=== PATIENT | female | born 1940 | race Caucasian/White ===

== ENCOUNTER 2017-12-16 10:22 | Observation (INO) | payer OTHER ==
[~2017-12-16] VITALS: Ht 160 cm; Wt 91.6 kg
[~2017-12-16 10:22] MED LIST: ACTOS30 MG PO; ASPIR 8181 MG PO; GLUCOPHAGE XR500 MG PO; GLUCOTROL10 MG PO; LEVOXYL50 MCG PO; LISINOPRIL40 MG PO; MACROBID 100 M100 MG PO; NORVASC5 MG PO; ZOCOR20 MG PO
--- OUTSIDE RECORDS SUMMARY | 2017-12-16 10:25 | XMS REPORT ---
Author Author [facility] Address Unknown Phone Unavailable Care Team Providers Care Artistic Associate Name Role Phone SCOTT PONCE Unavailable Unavailable Problems This patient has no known problems. Allergies, Adverse Reactions, Alerts This patient has no known allergies or adverse reactions. Medications This patient has no known medications. Results Test Description Test Time Test Comments Text Results Atomic Results Result Comments CT ABDOMEN/PELVIS WO [place] [id number] Patient Name: SARIKA FRANKLIN MR #: [id number] : 1940 Age/Sex: 77/F Req #: [id number] Adm Physician: SCOTT PONCE MD Ordered by: SCOTT PONCE MD Report #: [id number] Location: MED/SURG Room/Bed: [facility] Procedure: [id number] CT/CT ABDOMEN/PELVIS WO Exam Date: Exam Time: 1949 REPORT STATUS: Signed EXAM: CT Chest, Abdomen and Pelvis WITHOUT contrast INDICATION: COMPARISON: None available at the time of dictation. TECHNIQUE: Chest, abdomen and pelvis were scanned utilizing a multidetector helical scanner from the lung apex to the pubic symphysis without administration of IV contrast. Absence of intravenous contrast decreases sensitivity for detection of focal lesions and vascular pathology. Coronal and sagittal reformations were obtained. Routine protocol was performed. IV CONTRAST: None ORAL CONTRAST: Gastroview COMPLICATIONS: None RADIATION DOSE: Total DLP: 1034 mGy*cm Estimated effective dose: (DLP x 0.015 x size factor) mSv CTDIvol has been reviewed. It is below the limits set by the Radiation Protocol Committee (RPC). FINDINGS: LINES and TUBES: Duffy catheter in place. LUNGS AND AIRWAYS: Right upper lobe 0.3 cm subpleural nodule (series 4 image 41). No focal consolidations. Mild dependent atelectasis. Central airways are clear. PLEURA: The pleural spaces are clear. HEART AND MEDIASTINUM: Thyroid is enlarged. Punctate calcification in the left thyroid lobe. Calcified mediastinal and hilar lymph nodes, likely related to prior granulomatous disease. No mediastinal, hilar or axillary lymphadenopathy. The heart is normal in size.. There is no pericardial effusion. Coronary artery atherosclerotic calcifications. HEPATOBILIARY: Calcified granulomas. No suspicious contour abnormalities. Mild hepatomegaly measuring approximately 17 cm in the right midclavicular line. No biliary ductal dilation. GALLBLADDER: Absent SPLEEN: Calcified granulomas. No splenomegaly. PANCREAS: No suspicious contour abnormalities. No ductal dilatation. ADRENALS: Thickened bilaterally, left greater than right, likely representing hyperplasia. KIDNEYS/URETERS: Right kidney is absent. Mild nonspecific left perinephric stranding. No hydronephrosis. No suspicious contour abnormalities. No stones. GI TRACT: No abnormal distention, wall thickening, or evidence of bowel obstruction. Diffuse colonic diverticula without evidence of diverticulitis. Appendix is normal. PELVIC ORGANS/ BLADDER: Unremarkable. LYMPH NODES: No lymphadenopathy. VESSELS: Limited evaluation without intravenous contrast. Moderate scattered atherosclerotic calcifications. No abdominal aortic aneurysm. PERITONEUM / RETROPERITONEUM: No free air or fluid. BONES: Unremarkable. SOFT TISSUES: No significant soft tissue stranding or drainable fluid collections within the visualized soft tissues. IMPRESSION: 1. Mild nonspecific left perinephric stranding which may be physiologic. Consider clinical correlation and urinalysis to exclude pyelonephritis. 2. Otherwise, no acute noncontrast CT abnormalities in the chest, abdomen, and pelvis. 3. Diffuse colonic diverticula without diverticulitis. 4. Mild hepatomegaly. 5. Enlarged thyroid. Signed by: DR. Jace De La Vega MD on 06/29/2017 8:33 PM Dictated By: JACE DE LA VEGA MD 32 Transcribed By: NASEEM on 06/29/172032 COPY TO: SCOTT PONCE MD CT CHEST WO [place] [id number] [place] [address] Patient Name: SARIKA FRANKLIN MR #: [id number] : 1940 Age/Sex: 77/F Req # : [id number] Adm Physician: SCOTT PONCE MD Ordered by: SCOTT PONCE MD Report #: [id number] Location: MED/SURG2 Room/Bed: [facility] _ Procedure: [id number] CT/CT CHEST WO Exam Date: 06/29/17 Exam Time: 1949 REPORT STATUS: Signed EXAM: CT Chest, Abdomen and Pelvis WITHOUT contrast INDICATION: COMPARISON : None available at the time of dictation. TECHNIQUE: Chest, abdomen and pelvis were scanned utilizing a multidetector helical scanner from the lung apex to the pubic symphysis without administration of IV contrast. Absence of intravenous contrast decreases sensitivity for detection of focal lesions and vascular pathology. Coronal and sagittal reformations were obtained. Routine protocol was performed. IV CONTRAST: None ORAL CONTRAST: Gastroview COMPLICATIONS: None RADIATION DOSE: Total DLP: 1034 mGy*cm Estimated effective dose: (DLP x 0.015 x size factor) mSv CTDIvol has been reviewed. It is below the limits set by the Radiation Protocol Committee (RPC). FINDINGS: LINES and TUBES: Duffy catheter in place. LUNGS AND AIRWAYS: Right upper lobe 0.3 cm subpleural nodule (series 4 image 41). No focal consolidations. Mild dependent atelectasis. Central airways are clear. PLEURA: The pleural spaces are clear. HEART AND MEDIASTINUM: Thyroid is enlarged. Punctate calcification in the left thyroid lobe. Calcified mediastinal and hilar lymph nodes, likely related to prior granulomatous disease. No mediastinal, hilar or axillary lymphadenopathy. The heart is normal in size.. There is no pericardial effusion. Coronary artery atherosclerotic calcifications. HEPATOBILIARY: Calcified granulomas. No suspicious contour abnormalities. Mild hepatomegaly measuring approximately 17 cm in the right midclavicular line. No biliary ductal dilation. GALLBLADDER: Absent SPLEEN: Calcified granulomas. No splenomegaly. PANCREAS: No suspicious contour abnormalities. No ductal dilatation. ADRENALS: Thickened bilaterally, left greater than right, likely representing hyperplasia. KIDNEYS/ URETERS: Right kidney is absent. Mild nonspecific left perinephric stranding. No hydronephrosis. No suspicious contour abnormalities. No stones. GI TRACT: No abnormal distention, wall thickening, or evidence of bowel obstruction. Diffuse colonic diverticula without evidence of diverticulitis. Appendix is normal. PELVIC ORGANS/BLADDER: Unremarkable. LYMPH NODES : No lymphadenopathy. VESSELS: Limited evaluation without intravenous contrast. Moderate scattered atherosclerotic calcifications. No abdominal aortic aneurysm. PERITONEUM / RETROPERITONEUM: No free air or fluid. BONES: Unremarkable. SOFT TISSUES: No significant soft tissue stranding or drainable fluid collections within the visualized soft tissues. IMPRESSION: 1. Mild nonspecific left perinephric stranding which may be physiologic. Consider clinical correlation and urinalysis to exclude pyelonephritis. 2. Otherwise, no acute noncontrast CT abnormalities in the chest, abdomen, and pelvis. 3. Diffuse colonic diverticula without diverticulitis. 4. Mild hepatomegaly. 5. Enlarged thyroid. Signed by : DR. Jace De La Vega MD on 06/29/2017 8:33 PM Dictated By: JACE DE LA VEGA MD 32 Transcribed By : NASEEM on 06/29/172032 COPY TO: SCOTT PONCE MD
[2017-12-16] MEDS ORDERED: DEXTROSE 50% SYRINGE 50 ML IV PRN (12:00)
[2017-12-16] MEDS ORDERED: FLUCONAZOLE 100 MG TAB PO ONE (12:00)
[2017-12-16] MEDS ORDERED: CLONIDINE HCL 0.1 MG TAB PO ONE (12:00)
[2017-12-16 12:10] LABS: BASOPHILS # (AUTO) 0.1 (0.0-0.1); BASOPHILS % 0.7 % (0.0-1.0); EOSINOPHILS # (AUTO) 0.3 (0.0-0.4); EOSINOPHILS % 2.2 % (0.0-6.0); HEMATOCRIT 43.6 % (34.2-44.1); LYMPHOCYTES # (AUTO) 2.7 (1.0-3.2); LYMPHOCYTES % 20.6 % (18.0-39.1); MEAN CORPUSCULAR HEMOGLOBIN 28.2 pg (28-32); MEAN CORPUSCULAR HGB CONC 32.1 g/dL (31-35); MEAN CORPUSCULAR VOLUME 87.7 fL (81-99); MONOCYTES # (AUTO) 0.6 (0.2-0.8); MONOCYTES % 4.9 % (4.4-11.3); NEUTROPHILS # (AUTO) 9.2 (2.1-6.9); NEUTROPHILS % 71.2 % (38.7-80.0); PLATELET COUNT 395 x10e3/uL (140-360); RED BLOOD COUNT 4.97 x10e6/uL (3.6-5.1); RED CELL DISTRIBUTION WIDTH 14.5 % (11.7-14.4)
[2017-12-16 12:26] LABS: CLARITY,URINE CLEAR (CLEAR); COLOR,URINE YELLOW (YELLOW)
[2017-12-16 12:27] LABS: BILIRUBIN,URINE NEGATIVE (NEGATIVE); KETONES,URINE NEGATIVE (NEGATIVE); LEUKOCYTE ESTERASE ,URINE NEGATIVE (NEGATIVE); NITRITE,URINE NEGATIVE (NEGATIVE); PROTEIN,URINE DIPSTICK NEGATIVE (NEGATIVE); URINE UROBILINOGEN 0.2 mg/dL (0.2 - 1)
[2017-12-16 12:36] LABS: RBC,URINE 0-5 /HPF (0-5)
[2017-12-16 12:37] LABS: EPITHELIAL CELLS,URINE RARE /LPF
[2017-12-16] MEDS ORDERED: IBUPROFEN 600 MG TAB PO STA (12:40)
[2017-12-16] MEDS ORDERED: ACETAMINOPHEN 325 MG TAB PO ONE (12:45)
[2017-12-16 12:50] LABS: ALBUMIN 3.3 g/dL (3.5-5.0); ALBUMIN/GLOBULIN RATIO 0.7 (0.8-2.0); ANION GAP 13.3 mmol/L (8-16); CALCIUM 9.9 mg/dL (8.4-10.2); CREATININE, SERUM 1.26 mg/dL (0.57-1.11); POTASSIUM 4.3 mmol/L (3.5-5.1)
[2017-12-16 13:39] VITALS: BP 165/69
[2017-12-16 13:40] VITALS: BP 165/69
[2017-12-16] MEDS ORDERED: LEVEMIR100 UNIT/1 SQ (15:03)
[2017-12-16 16:02] VITALS: BP 148/67
[2017-12-16] MEDS ORDERED: CIPROFLOXACIN/HYDROCORTISONE OTIC 10ML BTL OT SCH (17:00)
[2017-12-16] MEDS: CLOTRIMAZOLE 1% CR 15 GM TOP SCH (17:13)
[2017-12-16] MEDS: INSULIN REGULAR, HUMAN 100 UNIT/1 ML 3ML VIAL SQ SCH ×2 (17:14→20:20)
[2017-12-16] MEDS: CIPROFLOXACIN-DEXAMETHASONE (OTIC) 7.5 ML BOTTLE OT SCH (17:35)
[2017-12-16 20:00] VITALS: BP 127/87
[2017-12-16] MEDS: SIMVASTATIN 20 MG TAB PO SCH (20:19)
[2017-12-16 20:58] VITALS: BP 127/87
[2017-12-17] VITALS (10 sets, daily range): BP systolic 111–144; BP diastolic 68–81
[2017-12-17] MEDS: LEVOTHYROXINE SODIUM 50 MCG TAB PO SCH (06:55)
[2017-12-17] MEDS: INSULIN REGULAR, HUMAN 100 UNIT/1 ML 3ML VIAL SQ SCH ×4 (07:30→21:00)
[2017-12-17] MEDS: GLIPIZIDE 5 MG TAB PO SCH (08:51)
[2017-12-17] MEDS: CIPROFLOXACIN-DEXAMETHASONE (OTIC) 7.5 ML BOTTLE OT SCH ×2 (08:51→17:24)
[2017-12-17] MEDS: ASPIRIN 81 MG CHEW TAB PO SCH (08:52)
[2017-12-17] MEDS: LISINOPRIL 20 MG TAB PO SCH (08:53)
[2017-12-17] MEDS: CLOTRIMAZOLE 1% CR 15 GM TOP SCH (08:53)
[2017-12-17] MEDS ORDERED: NON-FORMULARY MEDICATION (Lisinopril 40 MG) PO SCH (09:00)
[2017-12-17] MEDS ORDERED: GLIPIZIDE 10 MG PO SCH (09:00)
--- NOTE | 2017-12-17 09:29 | History and Physical ---
CHIEF COMPLAINT: Medical debility placement issue. HISTORY: A 77-year-old female with baseline obesity, uncontrolled diabetes, type 2, noncompliant, has a significant yeast infection due to urinary incontinence. The patient is admitted for social problems. She is no longer able to stay at home. Family brought in. This has been going on usually for the past years. The patient insists on staying at home, but now she is unable to care for herself. She has severe candidiasis infection of the skin, especially in the groin area from not having a bath and very poor hygiene. PAST MEDICAL HISTORY: Obesity, hypertension, uncontrolled diabetes, type 2, supposed to be on insulin but not taking, osteoarthritis, medical debility, and dementia. SOCIAL HISTORY: Patients lives at home. Her daughter checks up on the patient, but she lives by herself. ALLERGIES: CODEINE. HOME MEDICATIONS: List reviewed. REVIEW OF SYSTEMS: As mentioned. PHYSICAL EXAMINATION VITAL SIGNS: Temperature is 96, blood pressure 111/71, pulse rate 100, respirations 18. GENERAL: The patient is not in any distress. HEENT: Normocephalic, atraumatic and anicteric. NECK: Supple grossly. PULMONARY: Diminished breath sounds. CARDIOVASCULAR: Regular rate and rhythm. ABDOMEN: Obese. SKIN: Severe candidiasis infection in the groin and the buttock area. NEUROLOGIC: Generalized weakness, dementia without any focal deficit. LABORATORY: WBC 12.9, hemoglobin 14, hematocrit 42.6, platelets are 395,000. Sodium is 134, potassium 4.3, chloride 94, bicarb 31, BUN 24, creatinine 1.3, glucose is 359. IMPRESSION 1. Medical debility. 2. Progressive dementia. 3. Uncontrolled diabetes, type 2 associated with yeast infection. 4. Poor personal hygiene. 5. Displacement. PLAN: Placement. Insulin treatment. Continue with her skin care. Will monitor the patient closely. Job#: [id number] [place]
[2017-12-17] MEDS: FLUCONAZOLE 100 MG TAB PO SCH (10:06)
[2017-12-17] MEDS: LEVOFLOXACIN 500 MG TAB PO SCH (10:06)
[2017-12-17] MEDS: INS LISP PRO/LISP HUMAN 75/25 100 UNITS/ML VIAL SC SCH ×2 (12:24→17:31)
[2017-12-17] MEDS: BETAMETHASONE/CLOTRIMAZOLE CR 15 GM TUBE TOP SCH ×2 (12:54→17:24)
[2017-12-17] MEDS: TRAMADOL HCL 50 MG TAB PO PRN ×2 (17:25→21:53)
[2017-12-17] MEDS: SIMVASTATIN 20 MG TAB PO SCH (21:53)
[2017-12-18] VITALS: BP 133/90
--- NOTE | 2017-12-18 00:15 | Diagnostic Imaging Report ---
EXAM: LUMBAR SPINE, AP, lateral, bilateral oblique and coned lateral view INDICATION: Fall, right hip and right lower back pain COMPARISON: None FINDINGS: BONES: Five lumbar-type vertebral bodies. The alignment is within normal limits. No acute displaced fractures. No lytic or blastic lesions. DISCS: Multilevel anterior osteophytes. JOINTS: Multilevel facet arthropathy, most prominent at L5/S1 and L4/L5. SOFT TISSUES: Surgical clips right upper quadrant of the abdomen. IMPRESSION: No acute lumbar spine radiographic findings. Signed by: Dr. Ara Dimas M.D. on 12/18/2017 12:11 AM
--- NOTE | 2017-12-18 00:17 | Diagnostic Imaging Report ---
EXAM: HIPS BILAT 3-4VWS (+/- PELVIS) INDICATION: Fall, right hip pain COMPARISON: None FINDINGS: BONES: No acute fractures. JOINTS: No malalignment. SOFT TISSUES: Normal IMPRESSION: No evidence of an acute fracture of the pelvis or hips. Signed by: Dr. Ara Dimas M.D. on 12/18/2017 12:13 AM
[2017-12-18 04:00] VITALS: BP 104/58
[2017-12-18] MEDS: LEVOTHYROXINE SODIUM 50 MCG TAB PO SCH (06:32)
[2017-12-18 06:36] LABS: BASOPHILS # (AUTO) 0.1 (0.0-0.1); BASOPHILS % 0.5 % (0.0-1.0); EOSINOPHILS # (AUTO) 0.1 (0.0-0.4); EOSINOPHILS % 0.5 % (0.0-6.0); HEMATOCRIT 41.2 % (34.2-44.1); HEMOGLOBIN 13.4 g/dL (12.0-16.0); LYMPHOCYTES # (AUTO) 1.8 (1.0-3.2); LYMPHOCYTES % 13.7 % (18.0-39.1); MEAN CORPUSCULAR HEMOGLOBIN 28.1 pg (28-32); MEAN CORPUSCULAR HGB CONC 32.5 g/dL (31-35); MEAN CORPUSCULAR VOLUME 86.4 fL (81-99); MONOCYTES # (AUTO) 0.6 (0.2-0.8); MONOCYTES % 4.8 % (4.4-11.3); NEUTROPHILS # (AUTO) 10.4 (2.1-6.9); PLATELET COUNT 374 x10e3/uL (140-360); RED BLOOD COUNT 4.77 x10e6/uL (3.6-5.1); RED CELL DISTRIBUTION WIDTH 14.6 % (11.7-14.4)
[2017-12-18 07:08] LABS: ANION GAP 12.3 mmol/L (8-16); CALCIUM 9.2 mg/dL (8.4-10.2); CREATININE, SERUM 1.04 mg/dL (0.57-1.11); POTASSIUM 4.3 mmol/L (3.5-5.1)
[2017-12-18] MEDS: INS LISP PRO/LISP HUMAN 75/25 100 UNITS/ML VIAL SC SCH ×2 (07:30→12:42)
--- NOTE | 2017-12-18 08:31 | Discharge Summary ---
PCP: Dr. Italo Najera FINAL DIAGNOSES 1. Candidiasis infection secondary to noncompliance to insulin treatment. 2. Left ear pain. 3. Osteoarthritis pain. 4. Debility. DISCHARGE MEDICATIONS 1. Ciprodex 3 drops in left ear twice a day for 7 days. 2. Cipro 500 mg b.i.d. for 10 days. 3. Lisinopril 10 mg b.i.d. 4. Tramadol 50 mg q.4 h. p.r.n. for pain. 5. Diflucan 100 mg daily for 15 days. HOME MEDICATIONS: The patient will continue insulin. She will stop the lisinopril 40 mg and change to the medication lisinopril 10 mg twice a day. Given prescription. HOSPITAL COURSE: Patient is a 77-year-old female who came in with candidiasis infection to the groin area. The patient had poor personal hygiene. This has been discussed with the patient numerous times in the past. The patient lives with her nephew who from time to time takes care of the patient, but at times would not. The daughter is not available at times as well. Patient has been recommended to go to the [facility] numerous times in the past. She could not afford assisted-living. However, she is not qualified with Medicaid since owns her own home. The patient is working on Medicaid for the future through her daughter's assistance. At this time, the patient adamantly refused [facility] placement. She adamantly wants to go home. She will be discharged home and see me on this week. Discharge medications as above. The patient is otherwise stable at this time. Discharged and will follow up on a close basis. Home health has been arranged. Job#: [id number] [place]
[2017-12-18 08:49] VITALS: BP 154/76
[2017-12-18 12:03] VITALS: BP 134/75
[2017-12-18] MEDS: FLUCONAZOLE 100 MG TAB PO SCH (12:36)
[2017-12-18] MEDS: ASPIRIN 81 MG CHEW TAB PO SCH (12:36)
[2017-12-18] MEDS: GLIPIZIDE 5 MG TAB PO SCH (12:36)
[2017-12-18] MEDS: BETAMETHASONE/CLOTRIMAZOLE CR 15 GM TUBE TOP SCH ×2 (12:36→17:57)
[2017-12-18] MEDS: LEVOFLOXACIN 500 MG TAB PO SCH (12:37)
[2017-12-18] MEDS: LISINOPRIL 20 MG TAB PO SCH (12:37)
[2017-12-18] MEDS: INSULIN REGULAR, HUMAN 100 UNIT/1 ML 3ML VIAL SQ SCH ×3 (12:39→18:26)
[2017-12-18] MEDS: CIPROFLOXACIN-DEXAMETHASONE (OTIC) 7.5 ML BOTTLE OT SCH ×2 (12:43→17:57)
[2017-12-18 16:53] VITALS: BP 144/72
== END 2017-12-18 20:14 | disposition home health service (06) ==
LOC: ER 10:22 → ERHOLD 12:03 → IMCU 13:26
PROVIDERS: ADMIT Internal Medicine; ATTEND Internal Medicine
DX: B37.3 Candidiasis of vulva and vagina (principal); Z91.14 Patient's other noncompliance with medication regimen; E87.1 Hypo-osmolality and hyponatremia; R73.9 Hyperglycemia, unspecified; Z79.4 Long term (current) use of insulin; H92.02 Otalgia, left ear; M19.90 Unspecified osteoarthritis, unspecified site; R53.81 Other malaise
CPT/HCPCS: 36415 ×3; 72110; 73522; 80048; 80053; 81001; 82607; 82948 ×3; 83036; 84443; 85025 ×2; 99284; G0378 ×3; J1815

== ENCOUNTER 2018-06-12 13:09 | Emergency (ER) | payer OTHER ==
[~2018-06-12] VITALS: Ht 160 cm; Wt 91.6 kg
[~2018-06-12 13:09] MED LIST changes: +LEVEMIR100 UNIT/1 SQ
[2018-06-12] MEDS ORDERED: TRAMADOL HCL 50 MG TAB PO ONE (13:30)
[2018-06-12 13:36] LABS: BASOPHILS # (AUTO) 0.1 (0.0-0.1); BASOPHILS % 0.6 % (0.0-1.0); EOSINOPHILS # (AUTO) 0.4 (0.0-0.4); EOSINOPHILS % 2.7 % (0.0-6.0); HEMATOCRIT 44.4 % (34.2-44.1); HEMOGLOBIN 14.4 g/dL (12.0-16.0); LYMPHOCYTES # (AUTO) 2.7 (1.0-3.2); LYMPHOCYTES % 20.8 % (18.0-39.1); MEAN CORPUSCULAR HEMOGLOBIN 27.7 pg (28-32); MEAN CORPUSCULAR HGB CONC 32.4 g/dL (31-35); MEAN CORPUSCULAR VOLUME 85.5 fL (81-99); MONOCYTES # (AUTO) 0.8 (0.2-0.8); MONOCYTES % 5.9 % (4.4-11.3); NEUTROPHILS # (AUTO) 9.1 (2.1-6.9); NEUTROPHILS % 69.5 % (38.7-80.0); PLATELET COUNT 342 x10e3/uL (140-360); RED BLOOD COUNT 5.19 x10e6/uL (3.6-5.1); RED CELL DISTRIBUTION WIDTH 14.4 % (11.7-14.4)
[2018-06-12 13:55] LABS: ALBUMIN 3.4 g/dL (3.5-5.0); ALBUMIN/GLOBULIN RATIO 0.7 (0.8-2.0); ANION GAP 15.7 mmol/L (8-16); CALCIUM 10.6 mg/dL (8.4-10.2); CREATININE, SERUM 1.29 mg/dL (0.57-1.11); POTASSIUM 4.7 mmol/L (3.5-5.1)
[2018-06-12 14:02] LABS: BILIRUBIN,URINE NEGATIVE (NEGATIVE); CLARITY,URINE SL CLOUDY (CLEAR); COLOR,URINE YELLOW (YELLOW); KETONES,URINE NEGATIVE (NEGATIVE); LEUKOCYTE ESTERASE ,URINE NEGATIVE (NEGATIVE); NITRITE,URINE NEGATIVE (NEGATIVE); PROTEIN,URINE DIPSTICK 2+ (NEGATIVE); URINE UROBILINOGEN 0.2 mg/dL (0.2 - 1)
--- NOTE | 2018-06-12 14:10 | Diagnostic Imaging Report ---
Examination: CT BRAIN WITHOUT CONTRAST History:Earache. Comparison studies:None Technique: Axial images were obtained from the skull base to the vertex. Coronal and sagittal images reconstructed from the axial data. Dose modulation, iterative reconstruction, and/or weight based adjustment of the mA/kV was utilized to reduce the radiation dose to as low as reasonably achievable. Intravenous contrast: None Findings: Scalp: No abnormalities. Bones: No fractures, blastic or lytic lesions. Brain sulci: Moderate volume loss for age. Severe volume loss of the midbrain which can be seen in progressive supranuclear palsy. Ventricles: Ex vacuo dilatation. No hydrocephalus. Extra-axial space: No abnormalities. Parenchyma: There are confluent areas of hypoattenuation in the periventricular and subcortical and pontine white matter, nonspecific. There are chronic infarcts in the left parietal capsular region and posterior limb of the left internal capsule with Wallerian degeneration along the left cerebral peduncle. No masses, hemorrhage, or acute or chronic cortical based vascular insults.. Sellar/suprasellar region: No abnormalities. Craniocervical junction: Patent foramen magnum. No Chiari one malformation. Incidental findings: Atherosclerotic calcification of the cavernous and supraclinoid internal carotid arteries. Impression: 1. No acute intracranial abnormality. 2. No abnormality of the bilateral mastoid air cells. 3. Moderate volume loss for age and severe chronic microvascular ischemic change with chronic lacunar infarcts, as above. Signed by: Dr. Misti Barrera M.D. on 06/12/2018 2:07 PM
[2018-06-12 14:15] LABS: BACTERIA,URINE MODERATE /HPF; EPITHELIAL CELLS,URINE MANY /LPF
[2018-06-12] MEDS ORDERED: SODIUM CHLORIDE 0.9% 500ML 500 ML IV STA (14:40)
[2018-06-12] MEDS ORDERED: INSULIN REGULAR, HUMAN 100 UNIT/1 ML 3ML VIAL SQ ONE (14:45)
[2018-06-12 16:55] VITALS: BP 148/79
== END 2018-06-12 17:04 | disposition home or self-care (01) ==
LOC: ER 13:09
DX: H92.02 Otalgia, left ear (principal); E11.65 Type 2 diabetes mellitus with hyperglycemia; F03.90 Unspecified dementia, unspecified severity, without behavioral disturbance, psychotic disturbance, mood disturbance, and anxiety; I10 Essential (primary) hypertension; E03.9 Hypothyroidism, unspecified; F41.9 Anxiety disorder, unspecified; F32.9 Major depressive disorder, single episode, unspecified
CPT/HCPCS: 36415; 70450; 80053; 81001; 82948; 83690; 85025; 87086; 99283; J7040

== ENCOUNTER 2019-01-03 10:09 | Inpatient (IN) | payer OTHER ==
[~2019-01-03] VITALS: Ht 162.6 cm; Wt 100.3 kg
--- NOTE | 2019-01-03 10:50 | Diagnostic Imaging Report ---
EXAM: CHEST SINGLE (PORTABLE) DATE: 01/03/2019 10:27 AM INDICATION:Chest pain COMPARISON: None FINDINGS: Lines and tubes: None Heart size normal. No focal pulmonary opacity, pleural effusion or pneumothorax. Upper abdomen unremarkable. No acute bony abnormality. IMPRESSION: No evidence for acute disease. Signed by: Dr. Liban Gonzalez M.D. on 01/03/2019 10:47 AM
[2019-01-03] MEDS ORDERED: METOPROLOL TARTRATE INJ 1 MG/ML VIAL IV ONE (11:15)
[2019-01-03 11:33] LABS: BASOPHILS # (AUTO) 0.1 (0.0-0.1); BASOPHILS % 0.7 % (0.0-1.0); EOSINOPHILS # (AUTO) 0.7 (0.0-0.4); HEMATOCRIT 43.3 % (34.2-44.1); HEMOGLOBIN 14.1 g/dL (12.0-16.0); LYMPHOCYTES # (AUTO) 2.5 (1.0-3.2); LYMPHOCYTES % 18.5 % (18.0-39.1); MEAN CORPUSCULAR HEMOGLOBIN 27.8 pg (28-32); MEAN CORPUSCULAR HGB CONC 32.6 g/dL (31-35); MEAN CORPUSCULAR VOLUME 85.4 fL (81-99); MONOCYTES # (AUTO) 0.8 (0.2-0.8); MONOCYTES % 5.9 % (4.4-11.3); NEUTROPHILS # (AUTO) 9.3 (2.1-6.9); NEUTROPHILS % 69.5 % (38.7-80.0); PLATELET COUNT 342 x10e3/uL (140-360); RED BLOOD COUNT 5.07 x10e6/uL (3.6-5.1); RED CELL DISTRIBUTION WIDTH 14.9 % (11.7-14.4)
[2019-01-03 11:47] LABS: CLARITY,URINE HAZY (CLEAR); COLOR,URINE YELLOW (YELLOW)
[2019-01-03 11:48] LABS: BILIRUBIN,URINE NEGATIVE (NEGATIVE); KETONES,URINE NEGATIVE (NEGATIVE); LEUKOCYTE ESTERASE ,URINE NEGATIVE (NEGATIVE); NITRITE,URINE NEGATIVE (NEGATIVE); PROTEIN,URINE DIPSTICK 2+ (NEGATIVE); URINE UROBILINOGEN 0.2 mg/dL (0.2 - 1)
[2019-01-03 11:49] LABS: BACTERIA,URINE MODERATE /HPF; EPITHELIAL CELLS,URINE MANY /LPF; RBC,URINE 0-5 /HPF (0-5); WBC,URINE (MAN) 0-5 /HPF (0-5)
[2019-01-03 11:50] LABS: INR 0.9; PROTHROMBIN TIME 12.6 seconds (11.9-14.5)
[2019-01-03 11:51] LABS: PARTIAL THROMBOPLASTIN TIME 30.9 seconds (23.8-35.5)
[2019-01-03 12:10] LABS: ALBUMIN 3.1 g/dL (3.5-5.0); ALBUMIN/GLOBULIN RATIO 0.6 (0.8-2.0); CALCIUM 10.4 mg/dL (8.4-10.2); CREATININE, SERUM 1.28 mg/dL (0.57-1.11); MAGNESIUM 2.1 MG/DL (1.3-2.1)
[2019-01-03 12:20] LABS: CREATINE KINASE MB 0.6 ng/mL (0-5.0)
[2019-01-03] MEDS ORDERED: DEXTROSE 50% SYRINGE 50 ML IV PRN (13:45)
[2019-01-03] MEDS ORDERED: METOPROLOL TARTRATE 25 MG TAB PO ONE (13:45)
[2019-01-03] MEDS ORDERED: MORPHINE SULFATE 2 MG/ML SYR 1ML IV PRN (13:45)
[2019-01-03] MEDS ORDERED: SODIUM CHLORIDE 0.9% 1000ML 1,000 ML IV ONE (13:45)
[2019-01-03] MEDS: TRAMADOL HCL 50 MG TAB PO PRN (15:10)
[2019-01-03] MEDS: FAMOTIDINE 20 MG/2 ML VIAL IV SCH (15:13)
[2019-01-03] MEDS ORDERED: MORPHINE SULFATE INJ 4 MG/ML INJ 1ML IV PRN (15:30)
[2019-01-03 16:11] VITALS: BP 187/91
[2019-01-03 16:12] VITALS: BP 161/82
[2019-01-03] MEDS: ONDANSETRON HCL INJ 2MG/ML 2ML 2 MG/ML VIAL IV PRN (16:45)
[2019-01-03] MEDS: INSULIN LISPRO 100 UNIT/1 ML 3ML VIAL SQ SCH ×2 (16:45→21:00)
--- NOTE | 2019-01-03 19:00 | NUR ---
received report from day nurse. patient is resting comfortably in bed. bed is in lowest position and call monson is within reach.
[2019-01-03 20:00] VITALS: BP 127/59
[2019-01-03 20:15] VITALS: BP 127/59
[2019-01-03 20:45] LABS: CREATINE KINASE MB 0.6 ng/mL (0-5.0)
[2019-01-04] VITALS (7 sets, daily range): BP systolic 108–162; BP diastolic 57–77
[2019-01-04] MEDS: ONDANSETRON HCL INJ 2MG/ML 2ML 2 MG/ML VIAL IV PRN (01:59)
[2019-01-04] MEDS: FAMOTIDINE 20 MG/2 ML VIAL IV SCH ×2 (02:26→14:39)
[2019-01-04 05:59] LABS: BASOPHILS # (AUTO) 0.1 (0.0-0.1); BASOPHILS % 0.5 % (0.0-1.0); EOSINOPHILS # (AUTO) 0.4 (0.0-0.4); EOSINOPHILS % 1.8 % (0.0-6.0); HEMATOCRIT 43.3 % (34.2-44.1); HEMOGLOBIN 13.6 g/dL (12.0-16.0); LYMPHOCYTES # (AUTO) 2.2 (1.0-3.2); LYMPHOCYTES % 10.9 % (18.0-39.1); MEAN CORPUSCULAR HGB CONC 31.4 g/dL (31-35); MEAN CORPUSCULAR VOLUME 89.1 fL (81-99); MONOCYTES # (AUTO) 1.3 (0.2-0.8); MONOCYTES % 6.6 % (4.4-11.3); NEUTROPHILS # (AUTO) 16.2 (2.1-6.9); NEUTROPHILS % 79.5 % (38.7-80.0); PLATELET COUNT 308 x10e3/uL (140-360); RED BLOOD COUNT 4.86 x10e6/uL (3.6-5.1); RED CELL DISTRIBUTION WIDTH 15.1 % (11.7-14.4)
[2019-01-04 06:16] LABS: ALBUMIN 2.7 g/dL (3.5-5.0); ALBUMIN/GLOBULIN RATIO 0.6 (0.8-2.0); ANION GAP 15.5 mmol/L (8-16); CALCIUM 9.6 mg/dL (8.4-10.2); CHOL/HDL RATIO 2.9 (3.0-3.6); CREATININE, SERUM 1.21 mg/dL (0.57-1.11); POTASSIUM 5.5 mmol/L (3.5-5.1)
[2019-01-04 06:37] LABS: CREATINE KINASE MB 0.5 ng/mL (0-5.0)
--- NOTE | 2019-01-04 07:08 | NUR ---
report given to day nurse. patient is resting comfortably in bed. bed is in lowest position and call monson is within reach. will continue to monitor patient.
[2019-01-04] MEDS: INSULIN LISPRO 100 UNIT/1 ML 3ML VIAL SQ SCH ×4 (07:41→22:03)
--- NOTE | 2019-01-04 08:04 | NUR ---
paged Dr Najera regarding elevated WBC 20.38 and potassium 5.5
[2019-01-04] MEDS ORDERED: ASPIRIN 81 MG ENTERIC COATED PO SCH (09:00)
[2019-01-04] MEDS ORDERED: DIATRIZOATE MEGL/DIATRIZOA SOD 30 ML BTL PO ONE (09:51)
--- NOTE | 2019-01-04 10:06 | NUR ---
Inserted Duffy catheter 16fr and secured it , patient tolerated well, urine [id number] cc noted
[2019-01-04] MEDS ORDERED: SODIUM CHLORIDE 0.9% 250ML 250 ML ONE (10:13)
[2019-01-04] MEDS ORDERED: CEFEPIME 1GM/NS 0.9% 50 ML 50 ML IV SCH (10:30)
[2019-01-04] MEDS: FLUCONAZOLE 200 MG/100 ML 100 ML IV SCH (10:34)
--- NOTE | 2019-01-04 11:06 | NUR ---
patient off the unit for CT scan , stable
--- NOTE | 2019-01-04 13:33 | NUR ---
SOCIAL WORK INITIAL ASSESSMENT Computer Networker to bedside to discuss plan of care with patient/family. CM/SW role and care transitions discussed. Anticipated discharge plan discussed along with duration of care. CM/SW discussed patients right to make decisions in care. CM/SW work hours given. Patient lives: HOUSE WITH NEPHEW Admit/Transfer: ED POA/Emergency contact: CRUZ [phone] OR DIAZ [phone] Current/Previous Home Health: HAS PROVIDER 1 WEEK PCP/Follow-up Care: PONCE Current/Previous DME: ARABELLA Other Services: NONE Employment Status: RETIRED Areas of Concerns: NONE Referral Needs: NONE Education Needs: NONE IMM/LEON given and signed (if applicable): NA Goal for discharge: RETURN HOME CM/SW left business card at the bedside with contact information. Name and number was also written on the patients whiteboard. Patient verbalized understanding of discussion. CM will follow-up with ongoing discharge and transition of care needs.
--- NOTE | 2019-01-04 13:38 | Diagnostic Imaging Report ---
EXAM: CT Abdomen and Pelvis WITHOUT contrast INDICATION: ^PAIN ^[id number] ^[id number] COMPARISON: Chest radiograph 01/03/[address] abdomen and pelvis 06/29/2017 TECHNIQUE: Abdomen and pelvis were scanned utilizing a multidetector helical scanner from the lung base to the pubic symphysis without administration of IV contrast. Absence of intravenous contrast decreases sensitivity for detection of focal lesions and vascular pathology. Coronal and sagittal reformations were obtained. Routine protocol was performed. IV CONTRAST: None. ORAL CONTRAST: Water RADIATION DOSE: Total DLP: 818 mGy*cm Estimated effective dose: (DLP x 0.015 x size factor) mSv COMPLICATIONS: None FINDINGS: LINES and TUBES: None. LOWER THORAX: Unremarkable HEPATOBILIARY: No focal hepatic lesions. No biliary ductal dilation. GALLBLADDER: Cholecystectomy. SPLEEN: No splenomegaly. PANCREAS: No focal masses or ductal dilatation. ADRENALS: Stable low-attenuation 1 cm left adrenal gland nodule on series 2, image 30 likely representing a benign adrenal gland adenoma. The right adrenal gland is normal. KIDNEYS/URETERS: No hydronephrosis. No cystic or solid mass lesions. No stones. GI TRACT: No bowel dilatation or obstruction. Mild nonspecific wall thickening of the small bowel without dilatation which is more prominent when compared to prior CT suggestive of enteritis. Diffuse colonic diverticulosis without diverticulitis, unchanged. Appendix is normal. PELVIC ORGANS/BLADDER: Unremarkable. LYMPH NODES: No lymphadenopathy. VESSELS: Unremarkable. PERITONEUM / RETROPERITONEUM: No free air or fluid. BONES: Mild multilevel degenerative changes of the lumbar spine. SOFT TISSUES: Unremarkable. IMPRESSION: 1. Mild nonspecific wall thickening of the small bowel without dilatation suggestive of enteritis. 2. Stable diverticulosis of the colon without diverticulitis. Signed by: Dr. Shani Todd M.D. on 01/04/2019 1:35 PM
[2019-01-04 14:14] LABS: CREATINE KINASE MB 2.4 ng/mL (0-5.0)
--- NOTE | 2019-01-04 14:30 | NUR ---
pt alert arrived via wheel chair, resp even and unlabored at this time no distress noted, pt able able to make needs known, pt oriented to room and call light in reach.
--- NOTE | 2019-01-04 14:40 | NUR ---
patient transferred to [facility], stable, family at bed side
[2019-01-04] MEDS: ENOXAPARIN SOD INJ 40 MG/0.4 ML SYR SC SCH (17:38)
[2019-01-04] MEDS: TRAMADOL HCL 50 MG TAB PO PRN (18:04)
--- NOTE | 2019-01-04 19:20 | NUR ---
Patient visited in room during nursing rounds. Patient alert and oriented x3. No distress or discomfort noted. Patient ambulatory with standby assist using rolling walker in room prn. Duffy catheter in place draining tea-colored urine. Extreme redness and excoriations (open to air) noted under right breast, under left breast, under abdominal skin folds (bilateral) down to bilateral legs (thigh area). Currently patient sitting on bedside recliner. Call monson within reach.
--- NOTE | 2019-01-04 19:41 | NUR ---
report given to oncoming nurse, for cont. care.
[2019-01-04] MEDS: SIMVASTATIN 20 MG TAB PO SCH (21:50)
[2019-01-04] MEDS: INSULIN GLARGINE 100 UNITS/ML VIAL SQ SCH (22:04)
[2019-01-05] VITALS (7 sets, daily range): BP systolic 111–184; BP diastolic 60–77
[2019-01-05] MEDS ORDERED: SODIUM CHLORIDE 0.9% 250ML 250 ML ONE (00:57)
[2019-01-05] MEDS: FAMOTIDINE 20 MG/2 ML VIAL IV SCH ×2 (01:31→15:14)
[2019-01-05] MEDS: CEFEPIME 1GM/NS 0.9% 50 ML 50 ML IV SCH ×2 (01:31→13:00)
[2019-01-05 05:36] LABS: BASOPHILS # (AUTO) 0.1 (0.0-0.1); BASOPHILS % 0.6 % (0.0-1.0); EOSINOPHILS # (AUTO) 0.5 (0.0-0.4); HEMATOCRIT 42.1 % (34.2-44.1); HEMOGLOBIN 13.2 g/dL (12.0-16.0); LYMPHOCYTES # (AUTO) 2.5 (1.0-3.2); LYMPHOCYTES % 19.2 % (18.0-39.1); MEAN CORPUSCULAR HEMOGLOBIN 27.4 pg (28-32); MEAN CORPUSCULAR HGB CONC 31.4 g/dL (31-35); MEAN CORPUSCULAR VOLUME 87.5 fL (81-99); MONOCYTES # (AUTO) 0.9 (0.2-0.8); MONOCYTES % 6.7 % (4.4-11.3); NEUTROPHILS % 68.9 % (38.7-80.0); PLATELET COUNT 318 x10e3/uL (140-360); RED BLOOD COUNT 4.81 x10e6/uL (3.6-5.1); RED CELL DISTRIBUTION WIDTH 15.2 % (11.7-14.4)
[2019-01-05 05:55] LABS: ANION GAP 14.9 mmol/L (8-16); CALCIUM 9.4 mg/dL (8.4-10.2); CREATININE, SERUM 1.4 mg/dL (0.57-1.11); POTASSIUM 4.9 mmol/L (3.5-5.1)
[2019-01-05] MEDS: LEVOTHYROXINE SODIUM 50 MCG TAB PO SCH (06:07)
[2019-01-05 06:31] LABS: THYROID STIMULATING HORMONE 2.847 uIU/mL (0.350-4.940)
--- NOTE | 2019-01-05 07:18 | NUR ---
pt asleep resp even and unlabored, pt arousal to name and touch no distress noted, pt sitting in recliner at bedside, call light in reach.
[2019-01-05] MEDS: ASPIRIN 81 MG CHEW TAB PO SCH (09:56)
[2019-01-05] MEDS: FLUCONAZOLE 200 MG/100 ML 100 ML IV SCH (09:56)
[2019-01-05] MEDS: INSULIN GLARGINE 100 UNITS/ML VIAL SQ SCH ×2 (10:22→23:19)
[2019-01-05] MEDS: INSULIN LISPRO 100 UNIT/1 ML 3ML VIAL SQ SCH ×4 (10:22→23:19)
[2019-01-05] MEDS: TRAMADOL HCL 50 MG TAB PO PRN (15:42)
[2019-01-05] MEDS: ENOXAPARIN SOD INJ 40 MG/0.4 ML SYR SC SCH (18:03)
--- NOTE | 2019-01-05 19:26 | NUR ---
report given to oncoming nurse, for continued care.
[2019-01-05] MEDS: SIMVASTATIN 20 MG TAB PO SCH (22:00)
[2019-01-06] VITALS (8 sets, daily range): BP systolic 110–167; BP diastolic 55–84
[2019-01-06] MEDS: FAMOTIDINE 20 MG/2 ML VIAL IV SCH (01:24)
[2019-01-06] MEDS: CEFEPIME 1GM/NS 0.9% 50 ML 50 ML IV SCH ×2 (01:24→12:26)
[2019-01-06] MEDS: LEVOTHYROXINE SODIUM 50 MCG TAB PO SCH (06:14)
--- NOTE | 2019-01-06 07:00 | NUR ---
RCD PT AT BED PT IS ALERT AND ORIENTED RESTING ON BED NO SIGNS OF ANY DISTRESS NOTED BED LOW AND LOCKED CALL LIGHT IN REACH
[2019-01-06] MEDS: INSULIN LISPRO 100 UNIT/1 ML 3ML VIAL SQ SCH ×4 (07:30→21:00)
[2019-01-06] MEDS: INSULIN GLARGINE 100 UNITS/ML VIAL SQ SCH ×2 (08:08→21:00)
[2019-01-06] MEDS: ASPIRIN 81 MG CHEW TAB PO SCH (09:00)
[2019-01-06] MEDS: FLUCONAZOLE 200 MG/100 ML 100 ML IV SCH (10:30)
--- NOTE | 2019-01-06 13:05 | NUR ---
WOUND CARE CONSULTATION - INITIAL EVALUATION Patient admitted from Home to ER for chest pain, uncontrolled blood glucose and urinary incontinence. LABS: WBC13.07 HGB13.2 HCT42.1 MoS7p25.8 Yusuf Score 20 Conservative PUP Active Patient sitting out of bed to chair. Notable poor hygiene. Mild odor present. Presents with rash to breast folds, armpits, groin areas extending to gluteal and bilateral inner mid upper thighs. Edges raised, deep reddened. Patient states rash has been there for > 1 month. Patient currently on IV Diflucan 200mg IV q24h. Indwelling Duffy catheter in place draining yellow urine. IMPRESSION: Breast Folds, Axilla, Bilateral Groin areas extending to Gluteals and Bilateral Inner Mid Upper Thighs - Dermatologic Rash - Yeast. RECOMMENDATION: 1. Buttocks - Dermatologic Rash - Yeast - Daily Shower with Nizoral Shampoo then Dry Thoroughly. - Apply Nystatin Cream q12H and PRN Soiling once skin is Dry. Thank you for consulting with Wound Care. Addendum: 01/06/19 at 1314 by Derek Hein RN Amended: Links added.
[2019-01-06] MEDS ORDERED: ONDANSETRON HCL 4 MG ORAL DISINTEGRATING TAB PO PRN (13:15)
[2019-01-06] MEDS: NYSTATIN 100,000 UNITS/GM CRM 30GM TUBE TOP SCH ×2 (13:15→21:48)
[2019-01-06] MEDS: TRAMADOL HCL 50 MG TAB PO PRN ×2 (15:45→21:59)
[2019-01-06] MEDS: ENOXAPARIN SOD INJ 40 MG/0.4 ML SYR SC SCH (17:00)
--- NOTE | 2019-01-06 19:27 | NUR ---
PT RESTING ON BED BED SIDE REPORT GIVEN TO ONCOMING NURSE
[2019-01-06] MEDS: FAMOTIDINE 20 MG TAB PO SCH (21:46)
[2019-01-06] MEDS: SIMVASTATIN 20 MG TAB PO SCH (21:47)
[2019-01-07] VITALS (7 sets, daily range): BP systolic 135–173; BP diastolic 59–85
[2019-01-07] MEDS: CEFEPIME 1GM/NS 0.9% 50 ML 50 ML IV SCH ×2 (01:09→13:00)
[2019-01-07] MEDS: LEVOTHYROXINE SODIUM 50 MCG TAB PO SCH (05:30)
[2019-01-07 06:16] LABS: BASOPHILS # (AUTO) 0.1 (0.0-0.1); BASOPHILS % 0.5 % (0.0-1.0); EOSINOPHILS # (AUTO) 0.8 (0.0-0.4); EOSINOPHILS % 7.1 % (0.0-6.0); HEMATOCRIT 39.6 % (34.2-44.1); HEMOGLOBIN 12.6 g/dL (12.0-16.0); LYMPHOCYTES # (AUTO) 2.4 (1.0-3.2); LYMPHOCYTES % 20.8 % (18.0-39.1); MEAN CORPUSCULAR HEMOGLOBIN 27.8 pg (28-32); MEAN CORPUSCULAR HGB CONC 31.8 g/dL (31-35); MEAN CORPUSCULAR VOLUME 87.2 fL (81-99); MONOCYTES # (AUTO) 0.9 (0.2-0.8); MONOCYTES % 7.5 % (4.4-11.3); NEUTROPHILS # (AUTO) 7.5 (2.1-6.9); NEUTROPHILS % 63.7 % (38.7-80.0); PLATELET COUNT 304 x10e3/uL (140-360); RED BLOOD COUNT 4.54 x10e6/uL (3.6-5.1); RED CELL DISTRIBUTION WIDTH 15.3 % (11.7-14.4)
[2019-01-07 06:31] LABS: ANION GAP 11.2 mmol/L (8-16); CALCIUM 9.6 mg/dL (8.4-10.2); CREATININE, SERUM 1.09 mg/dL (0.57-1.11); POTASSIUM 4.2 mmol/L (3.5-5.1)
--- NOTE | 2019-01-07 07:08 | NUR ---
RCD PT AT BED PT IS ALERT AND ORIENTED PT RESTING ON BED NO SIGNS OF ANY DISTRESS NOTED IV PATENT BED LOW AND LOCKED CALL LIGHT IN REACH
[2019-01-07] MEDS: INSULIN LISPRO 100 UNIT/1 ML 3ML VIAL SQ SCH ×4 (07:30→21:00)
[2019-01-07] MEDS: INSULIN GLARGINE 100 UNITS/ML VIAL SQ SCH ×2 (08:50→21:00)
[2019-01-07] MEDS: ASPIRIN 81 MG CHEW TAB PO SCH (08:52)
[2019-01-07] MEDS: FAMOTIDINE 20 MG TAB PO SCH ×2 (08:53→20:45)
[2019-01-07] MEDS: NYSTATIN 100,000 UNITS/GM CRM 30GM TUBE TOP SCH ×2 (08:54→20:45)
[2019-01-07] MEDS: KETOCONAZOLE 2% SHAMPOO 4OZ BTL TOP SCH (08:54)
[2019-01-07] MEDS: FLUCONAZOLE 200 MG/100 ML 100 ML IV SCH (10:30)
--- NOTE | 2019-01-07 16:54 | NUR ---
PT C/O BURNING SENSATION ON THE MARCUS CATHETER SITE SHE NEED TO DC MARCUS PAGED AND LEFT THE MESSAGE TO DR PONCE TO NOTIFY THAT
[2019-01-07] MEDS: ENOXAPARIN SOD INJ 40 MG/0.4 ML SYR SC SCH (16:55)
--- NOTE | 2019-01-07 17:30 | NUR ---
DC MARCUS BY ORDER 300 ML URINE IN THE BAG
--- NOTE | 2019-01-07 18:39 | NUR ---
PT RESTING ON BED BED SIDE REPORT GIVEN TO ONCOMING NURSE
[2019-01-07] MEDS ORDERED: MAGNESIUM HYDROXIDE 30 ML UDC PO NR (19:15)
[2019-01-07] MEDS: SIMVASTATIN 20 MG TAB PO SCH (20:45)
[2019-01-07] MEDS: TRAMADOL HCL 50 MG TAB PO PRN (20:45)
[2019-01-08] VITALS: BP 148/65
[2019-01-08] MEDS: CEFEPIME 1GM/NS 0.9% 50 ML 50 ML IV SCH (00:22)
[2019-01-08 04:00] VITALS: BP 143/64
[2019-01-08] MEDS: LEVOTHYROXINE SODIUM 50 MCG TAB PO SCH (06:14)
[2019-01-08 08:24] VITALS: BP 139/75
[2019-01-08 08:30] VITALS: BP 139/75
[2019-01-08] MEDS: INSULIN LISPRO 100 UNIT/1 ML 3ML VIAL SQ SCH ×2 (08:36→12:25)
[2019-01-08] MEDS: INSULIN GLARGINE 100 UNITS/ML VIAL SQ SCH (08:36)
[2019-01-08] MEDS: FAMOTIDINE 20 MG TAB PO SCH (08:36)
[2019-01-08] MEDS: NYSTATIN 100,000 UNITS/GM CRM 30GM TUBE TOP SCH (08:36)
[2019-01-08] MEDS: ASPIRIN 81 MG CHEW TAB PO SCH (08:36)
[2019-01-08] MEDS: KETOCONAZOLE 2% SHAMPOO 4OZ BTL TOP SCH (08:37)
--- NOTE | 2019-01-08 08:42 | NUR ---
SPOKE WITH DAUGHTER CRUZ CROW [phone] SHE STATES TO PAY FOR A STAFF MECHANICAL ENGINEER PLACEMENT IS NOT AN OPTION. SHE STATES SHE HAS STARTED THE PROCESS FOR MEDICAID IF HER MOTHER AGREES TO GO TO A STAFF MECHANICAL ENGINEER PLACEMENT BUT OF RIGHT NOW SHE IS UNWILLING TO GO. SHE STATES SHE IS WORKING WITH [employer] TO GET HER A PROVIDER IN THE HOME FOR WHEN THE NEPHEW IS GONE TO WORK AND IS IN PROCESS OF GETTING THAT APPROVED. SHE STATES HER MOTHER HAS CALLED HER UPSET AND WANTING TO DISCHARGE BUT THAT SHE IS WORKING WITH THE DOCTOR TO MAKE HER GO TO A FACILITY. SHE STATES WHEN SHE IS DISCHARGED SHE WILL COME PICK HER UP. WILL ASK FOR HOME HEALTH TO DO SAFETY EVAL AND PT TO EVAL AND TREAT FOR HOME SETTING.
[2019-01-08] MEDS ORDERED: FLUCONAZOLE 100 MG TAB PO SCH (09:00)
--- NOTE | 2019-01-08 10:20 | NUR ---
LEFT MESSAGE FOR DR. PONCE. PT IS REQUESTING MEDICATION TO HELP HER HAVE A BM BEFORE D/C HOME. AWAITING CALL BACK.
--- NOTE | 2019-01-08 10:37 | NUR ---
Spoke to pt regarding home health order. Pt stated that she used home health previously but cannot remember the name of the company. Stated CM can send referral to any company that takes her insurance. Choice letter signed for [facility], [facility], [facility] Informed pt that CM will send to first company and if they cannot take, then will move on to the next. Contact information for each company was written on choice form. Signed choice letter was placed in chart. Copy to pt. IMM letter delivered and explained to pt. She verbalized understanding. Signed copy placed in chart. Copy to pt.
--- NOTE | 2019-01-08 12:08 | NUR ---
Home health referral faxed to [facility] Staff
[2019-01-08 12:11] VITALS: BP 151/67
--- NOTE | 2019-01-09 05:38 | Discharge Summary ---
PRIMARY CARE PHYSICIAN: Itlao Najera MD. The patient will go home with home health. FINAL DIAGNOSES: 1. Severe , dehydration associated also with urinary tract infection. Microbiology, urine culture was not done. Treat empirically. 2. Candidiasis secondary to urinary incontinent and poor, but self personal hygiene. 3. Multiple chronic baseline problem. SUMMARY: The patient is a 78-year-old female, noncompliant to her treatment. Overall, her glycohemoglobin A1c is 10.8. The patient came in with urinary tract infection. Urine shows moderate bacteria, 3+ glucose. The patient was dehydrated, dehydration with leukocytosis. Her WBC was 20.3 thousand, now normalizing. The patient is stable. She will go home today. Discharge home with Diflucan and Cipro. The patient to follow up in clinic next week. The patient will go home with home health. Discussed with the patient regarding personal hygiene care and patient understands. Daughter will try to get a provider care for the patient . MD CEASAR Woods/HONGL /[id number]
--- NOTE | 2019-01-09 12:44 | NUR ---
Spoke with Paula with [facility] Staff. She stated that they are accepting pt. PHONE: [phone]
== END 2019-01-08 12:42 | disposition home or self-care (01) | DRG 690 ==
LOC: ER 10:09 → ERHOLD 13:45 → IMCU 15:40 → OBSVTOIN 01-04 09:35 → MED/SURG2 01-04 14:38
PROVIDERS: ADMIT Internal Medicine; ATTEND Internal Medicine
DX: N39.0 Urinary tract infection, site not specified (principal); B37.2 Candidiasis of skin and nail; R32 Unspecified urinary incontinence; E11.65 Type 2 diabetes mellitus with hyperglycemia; Z79.4 Long term (current) use of insulin
CPT/HCPCS: 36415; 71045; 74176; 80048; 80053; 80061; 81001; 82550; 82553; 82948; 83036; 83735; 83880; 84443; 84484; 85025; 85610; 85730; 93005; 99284; G0378; J0692; J1450; J1650; J1815; J2405; J7030; J7050

== ENCOUNTER 2019-02-08 13:59 | Emergency (ER) | payer OTHER ==
[~2019-02-08] VITALS: Ht 162.6 cm; Wt 100.2 kg
--- NOTE | 2019-02-08 17:15 | Diagnostic Imaging Report ---
PELVIS AP 1-2 VIEWS - 3 views HISTORY: Pain COMPARISON: . FINDINGS: Bones: No acute displaced fracture. Osseous alignment is within normal limits. Joints: Mild DJD. Degenerative changes of the lower lumbar spine. Soft tissues: Vascular calcifications. IMPRESSION: No acute radiographic abnormality. Signed by: Dr. Valente Pascual M.D. on 02/08/2019 5:12 PM
--- NOTE | 2019-02-08 17:18 | Diagnostic Imaging Report ---
Lumbar Spine Radiographs: 5 views HISTORY: Pain. Twisted back. COMPARISON: 12/17/17. DISCUSSION: There are five non-rib bearing lumbar vertebral bodies. The alignment of the spine is within normal limits. No displaced fracture or compression deformity is identified. Multilevel degenerative disc disease and spondylosis of the lumbar spine, particularly at L4-L5 and L5-S1. Bilateral facet arthropathy also predominantly at the lower levels. IMPRESSION: Multilevel degenerative changes. Signed by: Dr. Valente Pascual M.D. on 02/08/2019 5:14 PM
[2019-02-08] MEDS ORDERED: CLOTRIMAZOLE-BE15 GM TOP (17:26)
[2019-02-08] MEDS ORDERED: FLUCONAZOLE100 MG PO (17:26)
[2019-02-08] MEDS ORDERED: IBUPROFEN 400 MG TAB PO NR (18:00)
== END 2019-02-08 18:35 | disposition home or self-care (01) ==
LOC: ER 13:59
DX: M54.6 Pain in thoracic spine (principal); M54.5 Low back pain; M25.551 Pain in right hip; M47.816 Spondylosis without myelopathy or radiculopathy, lumbar region; M51.36 Other intervertebral disc degeneration, lumbar region; B37.2 Candidiasis of skin and nail
CPT/HCPCS: 72110; 72170; 99283

== ENCOUNTER 2019-06-08 15:48 | Emergency (ER) | payer OTHER ==
[~2019-06-08] VITALS: Ht 162.6 cm; Wt 100.2 kg
[~2019-06-08 15:48] MED LIST changes: +CLOTRIMAZOLE-BE15 GM TOP; +FLUCONAZOLE100 MG PO
--- NOTE | 2019-06-08 17:00 | NUR ---
PATIENT TO ROOM 2
== END 2019-06-08 17:30 | disposition home or self-care (01) ==
LOC: ER 15:48
DX: B37.3 Candidiasis of vulva and vagina (principal); B37.2 Candidiasis of skin and nail
CPT/HCPCS: 99282